=== PATIENT | male | born 1940 | race Caucasian/White ===

== ENCOUNTER 2017-04-17 15:45 | Outpatient (CLI) | payer MEDICARE | END 2017-04-17 15:46 | disposition home or self-care (01) | LOC: LAB 15:45 | PROVIDERS: ATTEND Pharmacist | DX: Z79.01 Long term (current) use of anticoagulants (principal); I48.91 Unspecified atrial fibrillation | CPT/HCPCS: 85610 ==

== ENCOUNTER 2017-06-15 08:54 | Outpatient (CLI) | payer MEDICARE | END 2017-06-15 08:55 | disposition home or self-care (01) | LOC: LAB 08:54 | PROVIDERS: ATTEND Pharmacist | DX: I48.91 Unspecified atrial fibrillation (principal); Z79.01 Long term (current) use of anticoagulants | CPT/HCPCS: 85610 ==

== ENCOUNTER 2017-10-14 07:42 | Outpatient (CLI) | payer MEDICARE | END 2017-10-14 07:43 | disposition home or self-care (01) | LOC: LAB 07:42 | PROVIDERS: ATTEND Pharmacist | DX: I48.91 Unspecified atrial fibrillation (principal); Z79.01 Long term (current) use of anticoagulants | CPT/HCPCS: 85610 ==

== ENCOUNTER 2018-11-26 16:00 | Outpatient (CLI) | payer MEDICARE | END 2018-11-26 16:01 | disposition critical access hospital (66) | LOC: EMS 16:00 | PROVIDERS: ATTEND Surgery | DX: I46.9 Cardiac arrest, cause unspecified (principal) ==

== ENCOUNTER 2018-11-26 16:07 | Emergency (ER) | payer MEDICARE ==
--- NOTE | 2018-11-26 16:14 | ED Physician Documentation ---
PD HPI CPR - Stated complaint Stated Complaint: CPR - History obtained from History obtained from: EMS - History of Present Illness Timing - onset: Today (He presents by ambulance for cardiac arrest. Reportedly was not seen for about 30 minutes and then found down. Prior to arrival here he was originally in asystole and then developed fine V. fib. He was shocked twice. He has received 4 Rounds of epinephrine prior to arrival and also some bicarb.) Review of Systems Unable to obtain: Intubated PD PAST MEDICAL HISTORY - Allergies Allergies/Adverse Reactions: Allergies Allergy/AdvReac Type Severity Reaction Status Date / Time Unable to Assess Allergy Verified 11/26/18 16:15 PD ED PE NORMAL - Vitals Vital signs reviewed: Yes - General General: Other (He is intubated with Kip tube with a lot of bright bloody and frothy sputum out of the nares. Pupils are fixed and dilated. Bilateral breath sounds with bagging.) - Respiratory Respiratory: Other (Rhonchorous) - Neuro Eye Opening: None Motor: None Verbal: None GCS Score: 3 PD MEDICAL DECISION MAKING - ED course ED course: 78-year-old gentleman arrives with CPR ongoing after a prolonged downtime. On arrival at the first pulse check he was on agonal/asystolic rhythm and there was no cardiac motion on ultrasound. At that point further care was deemed futile and the code was called at 1611. Departure - Departure Disposition: 20 Clinical Impression: Sudden cardiac
[2018-11-26 16:16] VITALS: BP 0/0
== END 2018-11-26 16:30 | disposition expired ==
LOC: EDUNIT# → ED 16:07
DX: I46.9 Cardiac arrest, cause unspecified (principal)
CPT/HCPCS: 92950; 99282; 99285